=== PATIENT | female | born 1950 | race Caucasian/White ===

== ENCOUNTER 2018-02-11 07:36 | Inpatient (IN) | payer BC, MEDICARE ==
[~2018-02-11] VITALS: Ht 160 cm; Wt 66.7 kg
[2018-02-11 09:32] LABS: BASOPHILS # (AUTO) 0.06 x10^3/uL (0-0.1); BASOPHILS % (AUTO) 1 % (0-1); EOSINOPHILS # (AUTO) 0.14 x10^3/uL (0-0.4); EOSINOPHILS % (AUTO) 2 % (1-7); LYMPHOCYTES # (AUTO) 1.74 x10^3/uL (1-3.4); LYMPHOCYTES % (AUTO) 22 % (22-44); MD NO; MEAN CORPUSCULAR HEMOGLOBIN 31.5 pg (27.0-34.8); MEAN CORPUSCULAR HGB CONC 34.1 g/dL (32.4-35.8); MEAN CORPUSCULAR VOLUME 92.3 fL (80-100); MONOCYTES # (AUTO) 0.57 x10^3/uL (0.2-0.8); MONOCYTES % (AUTO) 7 % (2-9); NEUTROPHILS # (AUTO) 5.58 x10^3/uL (1.8-6.8); NEUTROPHILS % (AUTO) 69 % (42-75); PLATELET COUNT 266 x10^3/uL (130-400); RED BLOOD COUNT 4.63 x10^6/uL (3.82-5.3); RED CELL DISTRIBUTION WIDTH 13.5 % (9.6-15.2)
[2018-02-11 09:34] LABS: HCT (SEDRATE) 42.7 % (34.6-47.8)
[2018-02-11 09:43] LABS: ALBUMIN 3.7 g/dL (3.4-5.0); ANION GAP 6 mmol/L (5-15); C-REACTIVE PROTEIN, QUANT 0.56 mg/dL (0.02-0.49); CALCIUM 8.6 mg/dL (8.5-10.1); CHLORIDE 109 mmol/L (98-107); CREATININE 0.91 mg/dL (0.55-1.02)
[2018-02-11] MEDS ORDERED: ONDANSETRON 2MG/ML, 2ML IVPush PRN (10:00)
[2018-02-11] MEDS ORDERED: hydrALAzine 20 MG/ML, 1ML IV PRN (10:00)
[2018-02-11] MEDS ORDERED: DOCUSATE 100 MG CAPSULE PO PRN (10:00)
[2018-02-11] MEDS ORDERED: HYDROcodone/APAP 5/325 TABLET PO PRN (10:00)
[2018-02-11] MEDS ORDERED: MORPHINE SULFATE 4 MG/ML, 1ML IVPush PRN (10:00)
[2018-02-11] MEDS ORDERED: ONDANSETRON 4 MG TABLET PO PRN (10:00)
[2018-02-11] MEDS ORDERED: SODIUM CHLORIDE FLUSH 10ML SYR IVF ONE (10:00)
[2018-02-11] MEDS ORDERED: ACETAMINOPHEN 325 MG TABLET PO PRN (10:00)
[2018-02-11] MEDS ORDERED: ENALAPRILAT 1.25 MG/ML, 2ML IV PRN (10:00)
[2018-02-11] MEDS ORDERED: LABETALOL 5MG/ML, 20ML IVPush PRN (10:00)
[2018-02-11 10:16] LABS: CHOL/HDL RATIO 4.6; LDL/HDL RATIO 2.8 (0.5-3.0)
[2018-02-11] MEDS ORDERED: GADOBUTROL 10 MMOL/10 ML VIAL ONE (12:09)
[2018-02-11] MEDS ORDERED: ENOXAPARIN 40 MG/0.4 ML SQ SCH (13:00)
[2018-02-11 13:10] VITALS: BP 157/95
[2018-02-11 20:00] VITALS: BP 132/64
[2018-02-11] MEDS ORDERED: ATORVASTATIN 40 MG TABLET PO SCH (21:00)
[2018-02-12 01:48] VITALS: BP 152/68
[2018-02-12] MEDS ORDERED: ATEN25TA PO (08:41)
[2018-02-12] MEDS ORDERED: ASPIRIN 81 MG TABLET CHEW PO/NG SCH (09:00)
[2018-02-12 09:40] VITALS: BP 140/70
[2018-02-12] MEDS ORDERED: ATOR40TA78 PO (10:58)
[2018-02-12] MEDS ORDERED: ASPI-515 PO/NG (10:58)
== END 2018-02-12 12:55 | disposition home or self-care (01) | DRG 65 ==
LOC: ED 09:00 → SUATTDRO 09:30 → EDIP 09:31 → 4WST 12:05 → DCLOUNGE 02-12 12:40
PROVIDERS: ADMIT Family Medicine; ATTEND Family Medicine
DX: I63.511 Cerebral infarction due to unspecified occlusion or stenosis of right middle cerebral artery (principal); I16.1 Hypertensive emergency; E66.9 Obesity, unspecified; Z68.26 Body mass index [BMI] 26.0-26.9, adult; G83.9 Paralytic syndrome, unspecified; H51.21 Internuclear ophthalmoplegia, right eye; I10 Essential (primary) hypertension; I25.2 Old myocardial infarction; Z82.3 Family history of stroke; Z83.3 Family history of diabetes mellitus; Z90.710 Acquired absence of both cervix and uterus; Z90.49 Acquired absence of other specified parts of digestive tract; H49.00 Third [oculomotor] nerve palsy, unspecified eye
CPT/HCPCS: 36415; 70543; 70544; 70549; 70553; 80048; 80061; 82040; 85025; 85651; 86140; 93005; 93306; 93880; 99285; A9585; G0378; J1650; 92523-GN